=== PATIENT | female | born 1975 | race Caucasian/White ===

== ENCOUNTER 2017-05-16 12:55 | Emergency (ER) | payer OTHER ==
[~2017-05-16] VITALS: Ht 157.5 cm; Wt 117.0 kg
[2017-05-16 14:17] LABS: HEMATOCRIT. 31.2 % (36.0-48.0); HEMOGLOBIN. 9.5 g/dL (12.0-16.0); MEAN CORPUSCULAR HEMOGLOBIN 19.4 pg (28.0-32.0); MEAN CORPUSCULAR VOLUME 63.9 fL (81.0-99.0); MEAN PLATELET VOLUME 7.8 fl (7.4-10.4); PLATELET 439 x1000/uL (130-400); RED BLOOD CELL COUNT 4.89 mill/uL (4.2-5.4)
[2017-05-16 14:24] LABS: CHLORIDE 108 mEq/L (98-107)
[2017-05-16 14:30] LABS: PROTHROMBIN TIME 10.8 sec (9.4-11.6)
[2017-05-16 15:00] LABS: CLARITY URINE CLEAR (CLEAR); COLOR URINE YELLOW (YELLOW); KETONES URINE NEGATIVE (NEGATIVE); LEUKOCYTE ESTERASE URINE TRACE (NEGATIVE); NITRITE URINE NEGATIVE (NEGATIVE); OCCULT BLOOD URINE NEGATIVE (NEGATIVE); PH URINE 7.5 (4.5-8.0); PROTEIN URINE NEGATIVE (NEGATIVE); SPECIFIC GRAVITY URINE 1.007 (1.005-1.030); UROBILINOGEN URINE 0.2 E.U./dL (0.2-1.0)
[2017-05-16 15:31] LABS: PLATELET ESTIMATE INCREASED
[2017-05-16] MEDS ORDERED: SODIUM CHLORIDE 0.9% 1,000 ML IV ONE (17:06)
[2017-05-16] MEDS ORDERED: ACETAMINOPHEN 325MG TABLET PO STA ×2 (17:06)
[2017-05-16] MEDS ORDERED: KETOROLAC 30MG/ML VIAL IV ONE (17:15)
[2017-05-16 18:08] VITALS: BP 102/62
== END 2017-05-16 18:50 | disposition home or self-care (01) ==
LOC: ER 15:26
DX: R50.9 Fever, unspecified (principal); R10.11 Right upper quadrant pain; E11.9 Type 2 diabetes mellitus without complications; K57.90 Diverticulosis of intestine, part unspecified, without perforation or abscess without bleeding; K76.0 Fatty (change of) liver, not elsewhere classified
CPT/HCPCS: 36415; 71045; 74176; 76705; 80053; 81003; 81025; 83690; 85025; 85610; 96374; 99285; J1885; J7030; 93005